=== PATIENT | male | born 1955 | race Two or more races ===

== ENCOUNTER 2022-01-21 11:14 | Observation (INO) ==
[2022-01-21] MEDS ORDERED: ACETAMINOPHEN 325 MG TABLET PO PRN (18:16)
[2022-01-21] MEDS ORDERED: ONDANSETRON 4 MG/2 ML VIAL IV PRN (18:16)
[2022-01-21 18:56] LABS: Basophils # 0.1 10*3/uL (0.0-0.2); Basophils % 1.1 % (0.0-0.8); Eosinophils # 0.7 10*3/uL (0.0-0.87); Eosinophils % 6.6 % (0.00-10.9); Hematocrit 40.1 VOL% (42.0-52.0); Hemoglobin 13.6 GM/DL (14.0-18.0); Immature Granulocytes % 0.5 %; Immature Granulocytes Absolute 0.05 #; Lymphocytes % 19.4 % (21.2-54.2); Mean Corpuscular HGB Conc 33.9 GM/DL (32-36); Mean Corpuscular Volume 88.7 FL (87-102); Mean Platelet Volume 11.2 FL (9.6-12.0); Monocytes # 0.6 10*3/uL (0.11-0.8); Monocytes % 6.3 % (1.7-12.7); Neutrophils % 66.1 % (38.7-73.9); Platelet Count 213 T/CUMM (130-400); Red Blood Count 4.52 MC/CUMM (3.8-5.5); Red Cell Distribution Width 13.7 % (9.3-17.3); White Blood Count 10.2 T/CUMM (4-12)
[2022-01-21 19:05] LABS: PT Patient Result 10.7 SECS (10.1-12.1)
[2022-01-21 19:16] LABS: Albumin 3.5 G/DL (3.4-5.0); Bilirubin,Total 0.4 MG/DL (0.20-1.00); Calcium 9.2 MG/DL (8.5-10.1); Osmolality,Calculated 276.7 MOS/KG (273-304); Potassium 3.7 MMOL/L (3.5-5.1); Total Protein 7.7 G/DL (6.4-8.2)
[2022-01-21] MEDS: ENOXAPARIN 100 MG/ML SYRINGE SUBCUT SCH (21:07)
[2022-01-22] MEDS: ENOXAPARIN 100 MG/ML SYRINGE SUBCUT SCH (08:07)
[2022-01-22 12:06] VITALS: BP 134/85
[2022-01-22 13:05] LABS: Risk Ratio 3.97; VLDL Cholesterol 44.2 MG/DL
[2022-01-23 14:20] LABS: Protein S Activity Plasma 136 % (65 - 160)
[2022-01-23 14:51] LABS: Protein C Activity Plasma 94 % (70 - 150)
[2022-01-27 08:57] LABS: Activated Partial Thromb Time 38 sec (25 - 37); Fibrinogen, Clauss, P 514 mg/dL (200 - 500); INR 1.2 (0.9-1.1); Thrombin Time (Bovine), P 22.6 sec; von Willebrand Factor Activity 213 % (55 - 200)
[2022-01-27 09:41] LABS: Factor V Leiden (R506Q) Mutati Negative (Negative)
== END 2022-01-22 15:08 | disposition home or self-care (01) ==
LOC: N.EDINP 11:14 → N.ED 11:14 → SUATTDRO 18:16 → N.2W 20:30
PROVIDERS: ADMIT Internal Medicine; ATTEND Internal Medicine